=== PATIENT | male | born 1970 | race Caucasian/White ===

== ENCOUNTER 2018-06-18 13:40 | Emergency (ER) | payer OTHER ==
[~2018-06-18] VITALS: Ht 177.8 cm; Wt 83.0 kg
[2018-06-18 13:43] VITALS: Ht 177.8 cm; Wt 83.0 kg
[2018-06-18 15:50] VITALS: BP 133/81
== END 2018-06-18 15:50 | disposition home or self-care (01) ==
LOC: ED 13:40
DX: S05.01XA Injury of conjunctiva and corneal abrasion without foreign body, right eye, initial encounter (principal); X58.XXXA Exposure to other specified factors, initial encounter; Y93.89 Activity, other specified; Y92.89 Other specified places as the place of occurrence of the external cause; Y99.8 Other external cause status
CPT/HCPCS: 90715